=== PATIENT | female | born 1995 | race Caucasian/White ===

== ENCOUNTER 2022-06-26 20:23 | Emergency (ER) | payer OTHER ==
[2022-06-26 21:17] VITALS: BP 160/111; PULSE 98
[2022-06-26] MEDS ORDERED: Ondansetron 4 MG/2 ML SDV IVPUSH ONE (21:44)
[2022-06-26] MEDS ORDERED: Dexamethasone 4 MG/ML SDV IVPUSH ONE (21:44)
[2022-06-26] MEDS ORDERED: Sodium Chloride 0.9% 1,000 ML IV ONE (21:45)
[2022-06-26] MEDS ORDERED: diphenhydrAMINE 50 MG/ML SDV IVPUSH ONE (21:45)
[2022-06-26] MEDS ORDERED: Ketorolac 30 MG/ML SDV IVPUSH ONE (22:33)
[2022-06-26] MEDS ORDERED: fentaNYL 100 MCG/2 ML SDV IVPUSH ONE (22:34)
[2022-06-26] MEDS ORDERED: Prochlorperazine 10 MG/2 ML SDV IVPUSH ONE (23:34)
== END 2022-06-27 00:09 | disposition home or self-care (01) ==
LOC: JD.ED 20:23
DX: G43.909 Migraine, unspecified, not intractable, without status migrainosus (principal); K21.9 Gastro-esophageal reflux disease without esophagitis; Z79.899 Other long term (current) drug therapy
CPT/HCPCS: 70450; 96361; 96374; 96375; 99283; J0780; J1100; J1200; J1885; J2405; J3010; J7030

== ENCOUNTER 2022-11-14 21:09 | Emergency (ER) | payer OTHER ==
[2022-11-14] MEDS ORDERED: LORazepam 2 MG/ML SDV IM ONE (21:28)
[2022-11-14] MEDS ORDERED: Ondansetron 4 MG/2 ML SDV IVPUSH ONE ×2 (21:28→21:41)
[2022-11-14] MEDS ORDERED: Ketorolac 30 MG/ML SDV IVPUSH ONE ×2 (21:28→21:43)
[2022-11-14] MEDS ORDERED: LORazepam 2 MG/ML SDV IVPUSH ONE (21:41)
[2022-11-14 22:39] VITALS: BP 149/91; PULSE 87
== END 2022-11-14 22:40 | disposition home or self-care (01) ==
LOC: JD.ED 21:09
DX: G44.209 Tension-type headache, unspecified, not intractable (principal); J45.909 Unspecified asthma, uncomplicated; K21.9 Gastro-esophageal reflux disease without esophagitis; Z79.899 Other long term (current) drug therapy
CPT/HCPCS: 96374; 96375; 99283; J1885; J2060; J2405; 99284